=== PATIENT | female | born 1955 | race Two or more races ===

== ENCOUNTER 2018-12-20 06:37 | Observation (INO) | payer OTHER ==
[~2018-12-20 06:37] MED LIST: CEFAZOLIN 2 GM/50 ML (PMX) 50 ML IVPB; SOD CHLORIDE 0.9% 1,000 ML IV
[2018-12-20] MEDS ORDERED: SEVOFLURANE 15 MIN (07:00)
[2018-12-20] MEDS ORDERED: CEFAZOLIN 2 GM/50 ML (PMX) 50 ML IVPB (08:00)
[2018-12-20] MEDS ORDERED: SOD CHLORIDE 0.9% 1,000 ML IV (08:00)
[2018-12-20] MEDS ORDERED: FENTAnyl 50 MCG/ML VIAL ×2 (10:39→11:09)
[2018-12-20] MEDS ORDERED: MIDAZOLAM 1 MG/ML 2 ML INJ (10:39)
[2018-12-20] MEDS ORDERED: LIDOCAINE 1% (MPF) 30 ML INJ (10:53)
[2018-12-20] MEDS: ISOSULFAN BLUE 1% 5 ML INJ SC (10:55)
[2018-12-20] MEDS ORDERED: LABETALOL HCL 20MG INJ (11:47)
[2018-12-20] MEDS ORDERED: PROPOFOL 20 ML (12:11)
[2018-12-20] MEDS ORDERED: CEFAZOLIN 1 GM INJ (12:11)
[2018-12-20] MEDS ORDERED: LIDOCAINE 2% (SDV) 5 ML INJ (12:11)
[2018-12-20] MEDS ORDERED: ONDANSETRON 4 MG INJ (12:12)
[2018-12-20] MEDS ORDERED: DIPHENHYDRAMINE 25 MG CAP PO (12:30)
[2018-12-20] MEDS ORDERED: ACETAMINOPHEN 325 MG TAB PO (12:30)
[2018-12-20] MEDS ORDERED: hydrALAzine 20 MG INJ IV (12:30)
[2018-12-20] MEDS ORDERED: METOCLOPRAMIDE 10 MG INJ IV (12:30)
[2018-12-20] MEDS ORDERED: DIPHENHYDRAMINE 50 MG INJ IV (12:30)
[2018-12-20] MEDS: ONDANSETRON 4 MG INJ IV ×2 (12:35→21:30)
[2018-12-20] MEDS: MEPERIDINE 25 MG INJ IV (12:35)
[2018-12-20] MEDS: HYDROmorphONE 1 MG/5 ML IV SYRINGE IV ×3 (12:42→13:41)
[2018-12-20] MEDS: FENTAnyl 50 MCG/ML VIAL IV ×4 (13:03→13:36)
[2018-12-20] MEDS: D5W-0.45 NACL + KCL 20 MEQ 1,000 ML IV ×2 (14:46→23:32)
[2018-12-20] MEDS: HYDROCODONE/APAP (5/325) TAB PO ×2 (17:49→21:31)
[2018-12-20] MEDS: ATORVASTATIN 10 MG TAB PO (20:35)
[2018-12-20] MEDS: HYDROmorphONE 0.5 MG/0.5 ML SYG SC (23:27)
[2018-12-21] MEDS: LEVOTHYROXINE 100 MCG TAB PO (05:23)
[2018-12-21] MEDS: ACET/BUTAL/CAFF TAB PO (07:24)
[2018-12-21] MEDS: D5W-0.45 NACL + KCL 20 MEQ 1,000 ML IV (08:30)
[2018-12-21] MEDS: HYDROCODONE/APAP (5/325) TAB PO (08:35)
[2018-12-21] MEDS: FLUOXETINE 10 MG CAP PO (08:36)
== END 2018-12-21 10:50 | disposition home or self-care (01) ==
LOC: SDS 06:37 → MS1 13:41 → SDS 12:23 → REC 12:23 → MS1 20:54
DX: D05.92 Unspecified type of carcinoma in situ of left breast (principal)
CPT/HCPCS: 19281; 88307; 88341; 88342; 99217